=== PATIENT | male | born 1980 | race African-American/Black ===

== ENCOUNTER 2018-11-26 02:04 | Emergency (ER) | payer OTHER ==
[~2018-11-26] VITALS: Ht 182.9 cm; Wt 73.0 kg
[2018-11-26 06:25] VITALS: BP 121/69
== END 2018-11-26 06:35 | disposition home or self-care (01) ==
LOC: ER 02:04
DX: S52.591A Other fractures of lower end of right radius, initial encounter for closed fracture (principal); S50.311A Abrasion of right elbow, initial encounter; Z98.1 Arthrodesis status; V47.5XXA Car driver injured in collision with fixed or stationary object in traffic accident, initial encounter; Y93.89 Activity, other specified; Y92.488 Other paved roadways as the place of occurrence of the external cause
CPT/HCPCS: 29125; 73080; 73110; 99283